=== PATIENT | male | born 1990 | race Caucasian/White ===

== ENCOUNTER → 2019-10-19 09:00 | Outpatient (BNVA) | payer MEDICAID, SELFPAY | PROVIDERS: Family Provider Nurse Practitioner; PCP Nurse Practitioner; Visit Provider Nurse Practitioner Family | DX: I10 Essential (primary) hypertension (principal); J30.2 Other seasonal allergic rhinitis; Z76.0 Encounter for issue of repeat prescription; H61.23 Impacted cerumen, bilateral | CPT/HCPCS: 80053; 80061; 84443; 85025 ==

== ENCOUNTER → 2020-05-01 08:17 | Outpatient (BNVA) | payer MEDICAID, SELFPAY | PROVIDERS: PCP Nurse Practitioner; Visit Provider Nurse Practitioner Family | DX: Z11.1 Encounter for screening for respiratory tuberculosis (principal); E03.9 Hypothyroidism, unspecified; I10 Essential (primary) hypertension | CPT/HCPCS: 80053; 80061; 81000; 84443; 85025; 86580 ==

== ENCOUNTER → 2020-10-30 08:42 | Outpatient (BNVA) | payer MEDICAID, SELFPAY | PROVIDERS: PCP Nurse Practitioner; Visit Provider Nurse Practitioner Family | DX: I10 Essential (primary) hypertension (principal); Z76.0 Encounter for issue of repeat prescription; J30.2 Other seasonal allergic rhinitis | CPT/HCPCS: 80053; 80061; 84443; 85025 ==

== ENCOUNTER → 2021-05-08 09:16 | Outpatient (BNVA) | payer MEDICAID, SELFPAY | PROVIDERS: PCP Nurse Practitioner; Visit Provider Nurse Practitioner Family | DX: I10 Essential (primary) hypertension (principal); J30.2 Other seasonal allergic rhinitis; H61.23 Impacted cerumen, bilateral; Z00.00 Encounter for general adult medical examination without abnormal findings; Z71.82 Exercise counseling; Z71.3 Dietary counseling and surveillance; Z68.33 Body mass index [BMI] 33.0-33.9, adult; Z76.0 Encounter for issue of repeat prescription; Z23 Encounter for immunization | CPT/HCPCS: 80053; 80061; 81000; 84443; 85025; 86580 ==

== ENCOUNTER → 2021-09-18 14:25 | Outpatient (BNVA) | payer MEDICAID, SELFPAY | PROVIDERS: PCP Nurse Practitioner; Visit Provider Nurse Practitioner Family | DX: J02.9 Acute pharyngitis, unspecified (principal); R50.9 Fever, unspecified | CPT/HCPCS: 87071; 87635; 87880 ==

== ENCOUNTER → 2021-11-09 09:17 | Outpatient (BNVA) | payer MEDICAID, SELFPAY | PROVIDERS: PCP Nurse Practitioner; Visit Provider Nurse Practitioner Family | DX: I10 Essential (primary) hypertension (principal); J30.2 Other seasonal allergic rhinitis; H61.23 Impacted cerumen, bilateral; Z76.0 Encounter for issue of repeat prescription | CPT/HCPCS: 80053; 80061; 84443; 85025 ==

== ENCOUNTER 2022-05-23 22:01 | Emergency (ER) | payer MEDICAID, SELFPAY ==
[2022-05-23 22:08] VITALS: BP 133/84; PULSE 92; RESP 16; TEMP 36.7; O2SAT 98
--- NOTE | 2022-05-23 23:09 | W.ED.ABDPA2 ---
HPI - Abdominal Pain General: Chief Complaint: Abdominal Pain Stated Complaint: ABD Pain Time Seen by Provider: 05/23/22 23:06 Limitations: other History of Present Illness: Mr. Saravia is a 32-year-old male with history of hypertension and developmental delay presenting to the emergency department due to abdominal pain. Symptom onset was earlier today without known specific factor. He does have a history of constipation however still been eating normally. Worse with palpation and movement. No other signs systemic illness. History limited by patient's baseline mental status and largely provided by patient's caregiver at bedside. Review of Systems General: Reports: ROS unobtainable due to medical condition [facility] ED PFSH: Medical History Hypertension Seasonal allergies Family History Other Cancer Hypertension Social History Smoking and tobacco status: never smoked Alcohol intake: never Caregiver/support person: Yes Lives independently: No Household members: caregiver Housing: House Marital status: Single Current occupational status: disabled History of recent travel: No Physical Exam Const: COMMON NORMALS: alert GENERAL APPEARANCE: cooperative and well developed HENMT: COMMON NORMALS: normocephalic and atraumatic HEAD & SCALP: normocephalic and atraumatic Eye: COMMON NORMALS: conjunctivae normal CONJUNCTIVA: Yes conjunctivae normal SCLERA: sclerae normal Neck/C-Spine: COMMON NORMALS: supple GENERAL: Yes trachea midline Resp: COMMON NORMALS: clear to auscultation bilaterally EFFORT & INSPECTION: Yes able to speak in complete sentences AUSCULTATION: clear to auscultation bilaterally Cardio: COMMON NORMALS: regular rate and regular rhythm RATE: regular rate RHYTHM: regular rhythm GI: COMMON NORMALS: Soft to palpation PALPATION: Yes Soft to palpation and No Tenderness to palpation present (GI) Extremity: GENERAL: Yes normal exam except as noted and No edema Neuro: COMMON NORMALS: moves all extremities SENSORIUM/ORIENTATION: Yes alert and No Orientation impaired Psych: COMMON NORMALS: mental status grossly normal and Normal thought process present THOUGHT PROCESS: Normal thought process present Course Vital Signs: Vital signs: Vital Signs Temperature 98.1 F 05/23/22 22:08 Pulse Rate 87 05/24/22 05:08 Respiratory Rate 18 05/24/22 05:08 Blood Pressure 131/74 05/24/22 05:08 Pulse Oximetry 98 05/24/22 05:08 Oxygen Delivery Me thod 05/24/22 04:53 MDM - Abdominal Pain Medical Decision Making 32-year-old male with history of developmental delay presenting to the emergency room for abdominal pain. Patient is nontoxic on exam, no evidence of acute surgical abdomen or peritonitis. Given limitations and history I do feel that further evaluation is appropriate. Laboratory studies notable for leukocytosis, normal hemoglobin. Metabolic panel without acute derangement. Lipase normal. No evidence of urinary tract infection. CT with right rib fracture, no significant tenderness over this region. Additionally patient has abnormal appearance of sigmoid colon. Discussed CT images with general surgery who reviewed images and recommended serial abdominal exams in the emergency department. If no significant change patient can be safely discharged. Imaging findings may be due to redundant bowel loops. No significant change on reevaluation, extremely low suspicion for volvulus. Satisfactory for outpatient management with strict return precautions given. Staff verbalized understanding and patient reasonable for discharge. Medical Records I reviewed the patient's medical records. Lab Data I reviewed the patient's lab results. : 05/23/22 23:22 05/23/22 23:22 Labs/Radiology: Radiology Impressions Abdomen/Pelvis CT 05/23/22 23:48 IMPRESSION: 1. There is an acute fracture of the 9th rib on the right posteriorly with an adjacent small pleural fluid collection versus tiny hemothorax. 2. Prominent gas-filled upper loop of the sigmoid colon with decompressed sigmoid colon present within the pelvis superimposed over the bladder raising some suspicion for a partial sigmoid volvulus. 3. Normal appendix 4. Benign right renal cysts, the largest measuring 17 mm in the upper pole. No further workup needed. COMMENTS: Consistent with the [employer]'s Incidental Findings Committee white paper (J Am Rodolfo Radiol 2018): Any incidental renal lesion less than 1 cm or classified as too small to characterize, or any incidental cystic renal lesion characterized as simple-appearing, is likely benign. No follow-up imaging is recommended for these lesions per consensus recommendations based on imaging criteria. ADDENDUM: 05/24/22 0208 CRITICAL RESULT: THIS REPORT CONTAINS FINDINGS THAT MAY BE CRITICAL TO PATIENT CARE. The findings were verbally communicated via telephone conference with Dr. Kolm, Gagandeep at 2:07 AM CDT on 05/24/2022. The findings were acknowledged and understood. Laboratory Results WBC 15.2 10^3/uL (4.0-10.0) H 05/23/22 23: RBC 4.93 10^6/uL (4.1-5.3) 05/23/22 23:22 Hgb 15.0 g/dL (11.7-16.6) 05/23/22 23: Hct 45.5 % (42.0-52.0) 05/23/22 23: MCV 92.3 fl (80-94) 05/23/22 23: MCH 30.4 pg (28.0-34.0) 05/23/22 23: MCHC 33.0 g/dL (30.0-36.0) 05/23/22 23: RDW 12.6 % (12.1-15.1) 05/23/22 23: Plt Count 330 10^3/cmm (130-400) 05/23/22 23: MPV 10.9 fL (7.4-10.4) H 05/23/22 23: Neut % (Auto) 67.5 % 05/23/22 23: Lymph % (Auto) 18.2 % 05/23/22 23: [place] % (Auto) 11.4 % 05/23/22 23: Eos % (Auto) 1.7 % 05/23/22 23: Baso % (Auto) 0.7 % 05/23/22 23: Neut # (Auto) 10.26 10^3/uL (1.8-7.7) H 05/23/22 23: Lymph # (Auto) 2.8 10^3/uL (0.8-4.8) 05/23/22 23: [place] # (Auto) 1.7 10^3/uL (0.2-0.9) H 05/23/22 23: Eos # (Auto) 0.3 10^3/uL (0.0-0.8) 05/23/22 23: Baso # (Auto) 0.1 10^3/uL (0.0-0.1) 05/23/22 23: Nucleated RBC % (auto) 0 % 05/23/22 23: Nucleated RBCs # 0.0 /100WBC 05/23/22 23: Sodium 137 mmol/L (136-145) 05/23/22 23: Potassium 4.6 mmol/L (3.5-5.1) 05/23/22 23: Chloride 98 mmol/L (98-107) 05/23/22 23: Carbon Dioxide 26 mmol/L (22-29) 05/23/22 23: Anion Gap 17.6 (5-19) 05/23/22 23: BUN 14 mg/dL (6-20) 05/23/22 23: Creatinine 0.4 mg/dL (0.7-1.2) L 05/23/22: GFR Calculation 249.3 mL/min (90-130) H 05/23/22: Glucose 105 mg/dL (65-115) 05/23/22 23: Calculated Osmolality 285 mOsm/kg (285-295) 05/23/22: Calcium 9.5 mg/dL (8.5-10.5) 05/23/22: Total Bilirubin 0.7 mg/dL (0.15-1.2) 05/23/22 23: AST 19 U/L (0-40) 05/23/22: ALT 17 U/L (0-41) 05/23/22 23: Alkaline Phosphatase 63 U/L (40-130) 05/23/22 23: Total Protein 7.6 g/dL (6.6-8.7) 05/23/22: Albumin 4.3 g/dL (3.5-5.2) 05/23/22 23: Globulin 3.3 g/dL (1.3-4.6) 05/23/22 23: Lipase 42 U/L (13-60) 05/23/22 23: Urine Color Yellow (Yellow) 05/24/22 00:37 Urine Appearance Clear (CLEAR) 05/24/22 00:37 Urine pH 5 (5-7) 05/24/22 00:37 Ur Specific [place] 1.030 (1.005-1.030) 05/24/22 00:37 Urine Protein Neg (Negative) 05/24/22 00:37 Urine Glucose (UA) Norm (Normal) 05/24/22 00:37 Urine Ketones Negative (Negative) 05/24/22 00:37 Urine Blood Neg (Negative) 05/24/22 00:37 Urine Nitrate Negative (Negative) 05/24/22 00:37 Urine Bilirubin Neg (Negative) 05/24/22 00:37 Urine Urobilinogen 1 mg/dL (Negative) H 05/24/22 00:37 Ur Leukocyte Esterase Trace (Negative) H 05/24/22 00:37 Urine RBC 0-4 /hpf (0-2) H 05/24/22 00:37 Urine WBC 0-4 /hpf (0-5) H 05/24/22 00:37 Ur Squamous Epith Cells 5-10 /hpf (0-5) H 05/24/22 00:37 Amorphous Sediment Not Reportable 05/24/22 00:37 Urine Bacteria 1+ /hpf (NONE) H 05/24/22 00:37 Urine Mucus 1+ /hpf 05/24/22 00:37 Discharge Plan Discharge Patient Disposition: Home Clinical Impression: Abdominal pain, Constipation Condition: Stable Prescriptions: No Action acetaminophen [Tylenol] 325 mg tablet 650 mg PO Q4H PRN (Reason: fever or pain) 7 Days Qty: 84 11RF loperamide [Imodium A-D] 2 mg tablet See Rx Instructions PO DAILY PRN (Reason: loose stool) Qty: 30 11RF Rx Instructions: 2 tab, then 1 tab after each loose stool, a max of 4 tabs per 24 hours loratadine 10 mg tablet 10 mg PO DAILY 30 Days Qty: 30 11RF polyethylene glycol 3350 [Miralax] 17 gram/dose powder 17 g PO DAILY PRN (Reason: constipation) 30 Days Qty: 510 11RF lisinopril 10 mg tablet 10 mg PO DAILY 30 Days Qty: 30 5RF Discharge Orders: Discharge ED (Routine); Ordered 05/24/22 Ordered By: Gagandeep Atkins Referrals: Vannessa Tian FNP-C [Primary Care Provider] - Discharge Diet: Advance as tolerated Discharge Activity: Increase activity as tolerated Patient Instructions: Constipation (ED), Abdominal Pain (ED) Activity Restrictions/Additional Instructions: Thank you for visiting the emergency department. You were seen and evaluated for abdominal pain. The exact cause of your symptoms is unclear however may be related to constipation. As directed I recommend MiraLAX 17 g orally 4 times daily for 2 days then adjust from 1-4 times daily for applesauce consistency stools multiple times per day. Please ensure adequate hydration while taking these. As discussed there is some abnormal appearance on your CT scan, please immediately return to the emergency department for worsening pain, fevers, inability tolerate oral intake, additional days without bowel movements, or ill appearance, or anything else that you are concerned about a feel needs emergency department evaluation. Please follow-up with primary care. Coding Level of Care Code ED Food Stylist for Carlos Avery
[2022-05-23 23:23] VITALS: BP 133/84; PULSE 92; RESP 16; O2SAT 98
[2022-05-23 23:25] LABS: Basophils # 0.1 10^3/uL (0.0-0.1); Basophils % 0.7 %; Eosinophils # 0.3 10^3/uL (0.0-0.8); Eosinophils % 1.7 %; Hematocrit 45.5 % (42.0-52.0); Lymphocytes # 2.8 10^3/uL (0.8-4.8); Lymphocytes % 18.2 %; Mean Corpuscular Hemoglobin 30.4 pg (28.0-34.0); Mean Corpuscular Volume 92.3 fl (80-94); Mean Platelet Volume 10.9 fL (7.4-10.4); Monocytes # 1.7 10^3/uL (0.2-0.9); Monocytes % 11.4 %; Neutrophils # 10.26 10^3/uL (1.8-7.7); Neutrophils % 67.5 %; Nucleated Red Blood Cells % 0 %; Platelet Count 330 10^3/cmm (130-400); Red Blood Count 4.93 10^6/uL (4.1-5.3); Red Cell Distribution Width 12.6 % (12.1-15.1); White Blood Count 15.2 10^3/uL (4.0-10.0)
[2022-05-23 23:48] LABS: Alanine Aminotransferase 17 U/L (0-41); Albumin Level 4.3 g/dL (3.5-5.2); Alkaline Phosphatase 63 U/L (40-130); Blood Urea Nitrogen 14 mg/dL (6-20); Calcium 9.5 mg/dL (8.5-10.5); Carbon Dioxide 26 mmol/L (22-29); Chloride 98 mmol/L (98-107); Globulin 3.3 g/dL (1.3-4.6); Glomerular Filtration Rate 249.3 mL/min (90-130); Glucose 105 mg/dL (65-115); Lipase 42 U/L (13-60); Osmolality Calculated 285 mOsm/kg (285-295); Sodium 137 mmol/L (136-145); Total Bilirubin 0.7 mg/dL (0.15-1.2); Total Protein 7.6 g/dL (6.6-8.7)
--- NOTE | 2022-05-23 23:48 | CTR_ITS ---
PROCEDURE INFORMATION: Exam: CT Abdomen And Pelvis Without Contrast Exam date and time: 05/23/2022 11:58 PM Age: 32 years old Clinical indication: Abdominal pain; Localized; Right; Prior surgery; Surgery type: Gb; Patient HX: Per caregiver, patient keeps favoring RT side of abd and acting in pain. ; Additional info: Abd pain TECHNIQUE: Imaging protocol: Computed tomography of the abdomen and pelvis without contrast. Radiation optimization: All CT scans at this facility use at least one of these dose optimization techniques: automated exposure control; mA and/or kV adjustment per patient size (includes targeted exams where dose is matched to clinical indication); or iterative reconstruction. COMPARISON: No relevant prior studies available. RADIATION DOSE METRICS: Total DLP (mGy-cm): 798.28 FINDINGS: Pleural spaces: There is a small pleural fluid collection and possible hemothorax present adjacent to the 9th rib fracture. Heart: There are no coronary artery calcifications. Liver: Normal. No mass. Gallbladder and bile ducts: Status post cholecystectomy. Pancreas: Normal. No ductal dilation. Spleen: Normal. No splenomegaly. Adrenal glands: Normal. No mass. Kidneys and ureters: There is a 14 mm hypoattenuation cystic lesions seen within the upper pole of the right kidney and a 2nd 17 mm cystic lesion present in the upper pole as well. Stomach and bowel: There is a prominent gas-filled upper loop of the sigmoid colon. There are segments of the sigmoid colon that appear decompressed within the pelvis superimposed over the bladder. A partial sigmoid volvulus cannot be entirely excluded. Appendix: The appendix is visualized and is normal in configuration. Intraperitoneal space: Unremarkable. No free air. No significant fluid collection. Vasculature: Unremarkable. No abdominal aortic aneurysm. Lymph nodes: Unremarkable. No enlarged lymph nodes. Urinary bladder: Unremarkable as visualized. Reproductive: Unremarkable as visualized. Bones/joints: There is an acute fracture of the 9th rib on the right posteriorly. Soft tissues: Unremarkable. CT/CT abdomen pelvis wo con [id number] IMPRESSION: 1. There is an acute fracture of the 9th rib on the right posteriorly with an adjacent small pleural fluid collection versus tiny hemothorax. 2. Prominent gas-filled upper loop of the sigmoid colon with decompressed sigmoid colon present within the pelvis superimposed over the bladder raising some suspicion for a partial sigmoid volvulus. 3. Normal appendix 4. Benign right renal cysts, the largest measuring 17 mm in the upper pole. No further workup needed. COMMENTS: Consistent with the [employer]'s Incidental Findings Committee white paper (J Am Rodolfo Radiol 2018): Any incidental renal lesion less than 1 cm or classified as too small to characterize, or any incidental cystic renal lesion characterized as simple-appearing, is likely benign. No follow-up imaging is recommended for these lesions per consensus recommendations based on imaging criteria.
[2022-05-24 00:28] LABS: Anion Gap 17.6 (5-19); Aspartate Amino Transferase 19 U/L (0-40); Potassium 4.6 mmol/L (3.5-5.1)
[2022-05-24 01:38] LABS: Glucose Urine UA Norm (Normal); Ketones Urine Negative (Negative); Protein Urine Neg (Negative); Urine Appearance Clear (CLEAR); Urine Color Yellow (Yellow); pH Urine 5 (5-7)
[2022-05-24 01:39] LABS: Add Urine Microscopic? YES; Bilirubin Urine Neg (Negative); Blood Urine Neg (Negative); Leukocyte Esterase Urine Trace (Negative); Nitrate Urine Negative (Negative); Urobilinogen Urine 1 mg/dL (Negative)
[2022-05-24 01:41] LABS: Bacteria Urine 1+ /hpf; RBC Urine 0-4 /hpf (0-2); WBC Urine 0-4 /hpf (0-5)
[2022-05-24 01:42] LABS: Add Urine Culture? No; Mucus Urine 1+ /hpf
[2022-05-24 02:09] VITALS: PULSE 90; RESP 18; O2SAT 97
[2022-05-24] MEDS: magnesium hydroxide 30 mL UDC PO (02:46)
[2022-05-24] MEDS: lactulose oral liq 20 gm/30 mL UDC 30 GM PO (02:47)
[2022-05-24 03:32] VITALS: PULSE 89; RESP 16; O2SAT 98
[2022-05-24 04:53] VITALS: BP 131/74; PULSE 87; RESP 18; O2SAT 98
--- NOTE | 2022-05-24 04:54 | PC.NURSE ---
PATIENT HAS MADE SEVERAL ATTEMPTS TO USE THE RESTROOM AFTER MEDICATIONS. CAREGIVER STATES NO BOWEL MOVEMENT HAS OCCURRED YET.
[2022-05-24 05:08] VITALS: BP 131/74; PULSE 87; RESP 18; O2SAT 98
== END 2022-05-24 05:09 | disposition home or self-care (01) ==
PROVIDERS: Emergency Provider Emergency Medicine; PCP Nurse Practitioner Family
DX: R10.9 Unspecified abdominal pain (principal); K59.00 Constipation, unspecified; I10 Essential (primary) hypertension
CPT/HCPCS: 74176; 80053; 81001; 83690; 85025; 99284

== ENCOUNTER → 2022-06-03 08:47 | Outpatient (BNVA) | payer MEDICAID, SELFPAY | PROVIDERS: PCP Nurse Practitioner Family; Visit Provider Nurse Practitioner Family | DX: I10 Essential (primary) hypertension (principal); Z11.1 Encounter for screening for respiratory tuberculosis; Z76.0 Encounter for issue of repeat prescription; J30.2 Other seasonal allergic rhinitis; H61.23 Impacted cerumen, bilateral | CPT/HCPCS: 80053; 80061; 81000; 84443; 85025; 86580 ==

== ENCOUNTER 2022-09-24 10:03 | Outpatient (CLI) | payer MEDICARE, MEDICAID, SELFPAY ==
--- NOTE | 2022-09-24 10:30 | CT_ITS ---
WS: [id number] CT CHEST WITH INTRAVENOUS CONTRAST HISTORY: S22.31XA - Fracture of one rib, right side, initial encounter... TECHNIQUE: Contiguous 5 mm axial imaging performed on the thorax. Coronal and sagittal reformats are submitted. All CT scans at [facility] use at least one of these dose optimization techniques: automated exposure control; mA and/or kV adjustment per patient size (includes targeted exams where dose is matched to clinical indication); or iterative reconstruction. CONTRAST: Omnipaque 350; 95 mL IV. DLP: 509.74 mGy.cm COMPARISON: 05/23/2022 and 08/31/2013 Lungs and central airway: Normal. Pleura: Normal. No pleural effusion. Heart and pericardium: Normal size heart with no pericardial effusion. Mediastinum and filippo: No mediastinum or hilar adenopathy. Vessels: Normal size aortic and pulmonary artery. No coronary artery calcifications. Chest wall and lower neck: No soft tissue masses. Upper abdomen: Prior cholecystectomy. Osseous structures: Partially healed fracture posterior RIGHT ninth rib. No additional fractures are evident. CT/CT chest w con* [id number] IMPRESSION: 1. Partially healed fracture posterior RIGHT ninth rib. No additional fracture s are evident. 2. Lungs are clear. No pneumothorax.
[2022-09-24] MEDS: iohexol 350 mg/mL 500 mL Btl (per mL) IV (10:51)
== END 2022-09-24 10:04 | disposition home or self-care (01) ==
PROVIDERS: PCP Nurse Practitioner Family; Visit Provider Nurse Practitioner Family
DX: S22.31XA Fracture of one rib, right side, initial encounter for closed fracture (principal); X58.XXXA Exposure to other specified factors, initial encounter
CPT/HCPCS: 71260; Q9967

== ENCOUNTER → 2022-12-03 09:24 | Outpatient (BNVA) | payer MEDICARE, MEDICAID, SELFPAY | PROVIDERS: PCP Nurse Practitioner Family; Visit Provider Nurse Practitioner Family | DX: I10 Essential (primary) hypertension (principal); H61.23 Impacted cerumen, bilateral; K59.00 Constipation, unspecified; J30.2 Other seasonal allergic rhinitis | CPT/HCPCS: 80053; 80061; 84443; 85025 ==

== ENCOUNTER → 2023-06-06 09:49 | Outpatient (BNVA) | payer MEDICARE, MEDICAID, SELFPAY | PROVIDERS: PCP Nurse Practitioner Family; Visit Provider Nurse Practitioner Family | DX: Z76.0 Encounter for issue of repeat prescription (principal); J30.2 Other seasonal allergic rhinitis; Z00.00 Encounter for general adult medical examination without abnormal findings; Z23 Encounter for immunization; I10 Essential (primary) hypertension; Z68.32 Body mass index [BMI] 32.0-32.9, adult; Z71.3 Dietary counseling and surveillance; Z71.82 Exercise counseling; K59.00 Constipation, unspecified; F41.9 Anxiety disorder, unspecified; H61.23 Impacted cerumen, bilateral | CPT/HCPCS: 80053; 80061; 81000; 84443; 85025 ==

== ENCOUNTER → 2023-11-20 10:31 | Outpatient (BNVA) | payer MEDICARE, MEDICAID, SELFPAY | PROVIDERS: PCP Nurse Practitioner Family; Visit Provider Nurse Practitioner Family | DX: F41.9 Anxiety disorder, unspecified (principal); I10 Essential (primary) hypertension; K59.00 Constipation, unspecified; J30.2 Other seasonal allergic rhinitis | CPT/HCPCS: 80053; 80061; 84443; 85025 ==

== ENCOUNTER → 2024-06-07 09:23 | Outpatient (BNVA) | payer MEDICARE, MEDICAID, SELFPAY | PROVIDERS: PCP Nurse Practitioner; Visit Provider Nurse Practitioner | DX: Z13.6 Encounter for screening for cardiovascular disorders (principal); F41.1 Generalized anxiety disorder | CPT/HCPCS: 80053; 80061; 81000; 84443; 85025 ==

== ENCOUNTER → 2024-11-24 09:46 | Outpatient (BNVA) | payer MEDICARE, MEDICAID, SELFPAY | PROVIDERS: PCP Nurse Practitioner; Visit Provider Nurse Practitioner | DX: F41.1 Generalized anxiety disorder (principal); F79 Unspecified intellectual disabilities; Z13.6 Encounter for screening for cardiovascular disorders; E55.9 Vitamin D deficiency, unspecified | CPT/HCPCS: 80053; 80061; 82306; 84443; 85025 ==

== ENCOUNTER → 2025-06-14 10:09 | Outpatient (BNVA) | payer MEDICARE, MEDICAID, SELFPAY | PROVIDERS: PCP Nurse Practitioner; Visit Provider Nurse Practitioner | DX: E55.9 Vitamin D deficiency, unspecified (principal); F41.1 Generalized anxiety disorder; Z13.6 Encounter for screening for cardiovascular disorders; N39.0 Urinary tract infection, site not specified | CPT/HCPCS: 80053; 80061; 81003; 82306; 84443; 85025; 87086 ==

== ENCOUNTER 2025-08-10 16:53 | Emergency (ER) | payer MEDICARE, MEDICAID, SELFPAY ==
[2025-08-10 17:00] VITALS: BP 144/92; PULSE 84; RESP 16; TEMP 36.4; O2SAT 99; BMI 29.3
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
--- OUTSIDE RECORDS SUMMARY | 2025-08-10 17:05 | XMS_ITS | Clinical Summary ---
Author Organization [facility] Address [address] [place]: [place] [phone] Care Team Providers Care Curriculum Consultant Name Role Phone Unavailable Primary Care Provider Unavailabl e Immunizations Immunization Administration Dates Next Due (M-M-R II/PRIORIX)(12 MO UP) MEASLES, MUMPS AND RUBELLA VIRUS VACCINE, 0.5 ML IM/SUBCUT 02/21/1994,12/07/1991 Dt Dtp Dtap Vaccine 02/21/1994, 3,12/07/1991,1990,1990 HIB, Unspecified Formulation 12/12/1994,11/20/18 91 Hepatitis B Vaccine 10/14/1995,04/28/1995,1994 IPV/OPV 02/21/1994, 3,1990,1989 Influenza Seasonal Unspecifi ed Formulation IM 06/19/2006 Social History Tobacco Use Types Packs/Day Years Used Date Smoking Tobacco: Never Assessed Sex and Gender Information Value Date Recorded Sex Assigned at Not on file 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
--- OUTSIDE RECORDS SUMMARY | 2025-08-10 17:05 | XMS_ITS | Encounter Summary ---
Author Organization [facility] Address [address] [place] [address] Care Team Providers Care Enrollment Clerk Name Role Phone Unavailable Primary Care Provider Unavailabl e Encounter Details Date Type Department Care Team (Latest Contact Info) Description 09/15/2002 Outpatient Historical [facility] 

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
== END 2025-08-10 17:21 | disposition home or self-care (01) ==
PROVIDERS: Emergency Provider Family Medicine; PCP Nurse Practitioner
DX: S20.419A Abrasion of unspecified back wall of thorax, initial encounter (principal); Y04.2XXA Assault by strike against or bumped into by another person, initial encounter; I10 Essential (primary) hypertension
CPT/HCPCS: 99282